=== PATIENT | female | born 1950 | race Caucasian/White ===

== ENCOUNTER 2020-09-30 12:19 | Emergency (ER) | payer MEDICARE, OTHER, SELFPAY ==
[2020-09-30] VITALS (16 sets, daily range): BP systolic 120–167; BP diastolic 60–83; PULSE 72–80; RESP 11–26; TEMP 36.5; O2SAT 93–99; BMI 41.1
--- NOTE | 2020-09-30 12:26 | ED_ITS ---
HPI - Syncope <SONNY Hernandez - Last Filed: 09/30/20 18:31> General Chief Complaint: Syncope Stated Complaint: near syncope Time Seen by Provider: 09/30/20 12:20 Source: EMS Mode of arrival: EMS Limitations: no limitations History of Present Illness HPI narrative: This is a 70-year-old female, nonsmoker, who has significant medical history for cardiac pacer/defib for cardiac failure, kidney disease, TBI, knee surgery, gastric banding, presents to ED with [facility] with chief complain of near syncope when she was at [facility] ordering food. Patient was pale and diaphoretic per witnesses at the restaurant. Patient is a poor historian stating she has dementia. Patient reports she has been feeling lightheaded daily for last 2 years. 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 Patient reports when she feels lightheadedness she just lays on the ground until the dizziness passes. Patient denies cardiac defects/pacemaker recently firing. Patient thinks she is currently on blood thinner but is not able to recall the name. Waiting for family member to arrive with her medication list. She reports abdominal mass when she tightens up abs and can't eat large meals and abdominal bloatedness. Patient reports 1st noticed abdominal messed about 6 years ago. Patient denies chest pain, dyspnea, or any discomfort at this time. Patient has history of urinary leakage but denies dysuria, urinary frequency, or urgency. Patient denies blood in her stools or tarry stools and states she has hard stools rather. Patient denies recent URI symptoms or known exposure to COVID-19. She has chronic cough and was told it is from allergy. Patient returned from a trip to [place] by vehicle. 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 [employer] and had seen lead cook, Dr. Albert(?), at [place] as well. PCP at [facility] but reports had not seen her PCP for frequent near-syncope, abdominal mass. Left a phone message at the clinic for old records and last lab results. Orthostatic positive per EMS with BP lying was 138/89 and sitting up BP was 89/54. Related Data Home Medications Medication Instructions Recorded Confirmed Aspir-81 09/30/20 amlodipine 09/30/20 carvedilol BID 09/30/20 isosorbide mononitrate 30 mg PO DAILY 09/30/20 09/30/20 losartan 09/30/20 nitroglycerin PRN PRN 09/30/20 pantoprazole PO 09/30/20 rosuvastatin mg 09/30/20 Allergies Allergy/AdvReac Type Severity Reaction Status Date / Time niacin Allergy Severe Rash Verified 09/30/20 12:21 Penicillins Allergy Severe Rash Verified 09/30/20 12:21 Review of Systems <SONNY Hernandez - Last Filed: 09/30/20 18:31> Review of Systems Narrative: General: Denies fever, chills, fatigue, malaise, sweats. HEENT: See HPI Respiratory: Denies dyspnea, cough, wheezing, hemoptysis, sputum. Cardiovascular: The HPI Gastrointestinal: Denies nausea, vomiting, abdominal pain, diarrhea, (+) constipation, melena. : Denies dysuria, frequency, (+) incontinence, hematuria, urinary retention. Musculoskeletal: Denies weakness, joint pain or bony pain. Skin: Denies rash, skin lesions, or other. Neurologic: Denies weakness, headache, numbness, change in speech, confusion, seizures, incoordination. Psychiatric: No concerning psychosocial issues. 12-point review of systems is negative except for those stated above. Patient History <SONNY Hernandez - Last Filed: 09/30/20 18:31> Medical History (Updated 09/30/20 @ 16:24 by SONNY Hernandez) Atrophy of right kidney Cardiac failure Chronic kidney disease Dementia GERD (gastroesophageal reflux disease) Hyperlipidemia Hypertension Kidney disease Sleep apnea TBI (traumatic brain injury) Surgical History (Updated 09/30/20 @ 13:53 by SONNY Hernandez) History of implantable cardioverter-defibrillator (ICD) insertion Social History Smoking Status: Never smoker Smoking Status: Never smoker alcohol intake frequency: 0-2 drinks per day Substance Use Type: does not use Exam <SONNY Hernandez - Last Filed: 09/30/20 18:31> Narrative Exam Narrative: GEN: Alert, oriented x 3, well appearing and nourished, and in no acute distress. Head: Normal cephalic, atraumatic. No scalp or temporal tenderness, palpable mass or rash. EYES: Pupils are equal, round, and reactive to light and accommodation. Extraocular muscles are intact bilaterally. There is no subconjunctival hemorrhage, exudate and sclera non-icteric. ENT: Hearing grossly intact. Airway patent. Neck: Trachea in midline. No JVD, non-tender without lymphadenopathy. No masses or thyroid megaly. Supple, non-tender and no meningeal signs. CARDIAC: Normal regular rate and rhythm without murmurs, gallops, or rubs. No chest wall tenderness. No peripheral edema, cyanosis or pallor. Capillary refill is less than 2 seconds. RESPIRATORY: Lungs are clear to auscultate bilaterally. No cough, wheezes, rales, or rhonchi. No stridor, respiratory distress, increase work of breathing, or accessary muscle used. ABD: Abdomen soft, nontender. Slight bulging in mid upper abdomen. No guarding or rebound tenderness to palpate. Bowel sounds are normal in all 4 quadrants. EXT: Full painless ROM of all extremities with no loss of sensation, strength, effusion or edema. SKIN: Slightly pale and diaphoretic. No erythema, lesions or rash over visible areas. BACK: Nontender without deformity or crepitance. No flank tenderness. NEUROLOGICAL: Alert and oriented to place, time and person. Sensation and motor function intact bilaterally. No facial droops, dysphasia. PSYCHIATRIC: Good judgement and reason, without hallucinations, abnormal affect or abnormal behaviors during the examination. Patient is not suicidal. Initial Vital Signs Initial Vital Signs: Vital Signs Temperature 97.7 F 09/30/20 12:18 Pulse Rate 80 09/30/20 12:18 Respiratory Rate 12 09/30/20 12:18 Blood Pressure 123/72 09/30/20 12:18 Pulse Oximetry 98 09/30/20 12:18 <Lacy Amaro DO - Last Filed: 10/03/20 00:13> Initial Vital Signs Initial Vital Signs: Vital Signs Temperature 97.7 F 09/30/20 12:18 Pulse Rate 80 09/30/20 12:18 Respiratory Rate 12 09/30/20 12:18 Blood Pressure 123/72 09/30/20 12:18 Pulse Oximetry 98 09/30/20 12:18 Scores <SONNY Hernandez - Last Filed: 09/30/20 18:31> GCS Dorothy coma scale eye opening: Spontaneous Dorothy coma scale verbal response: Orientated Krystal coma scale motor response: Obey commands Dorothy coma scale total score: 15 Wells' Criteria for PE Clinical signs and symptoms of DVT: No PE is #1 Dx or equally likely: No Heart rate > 100: No Immobilization at least 3 days or surg in previous 4 weeks: No History of PE or DVT: No Hemoptysis: No Malignancy w/Treatment within 6 months or palliative: No Wells' PE Score total: 0 Course <MOE HernandezP - Last Filed: 09/30/20 18:31> Orders Ordered: Discontinued Medications Sodium Chloride (Normal Saline 0.9%) 1,000 mls @ 500 mls/hr IV BOLUS ONE Stop: 09/30/20 14:23 Last Infusion: 09/30/20 17:30 Dose: 0 mls/hr Documented by: Admin: 09/30/20 12:30 Dose: 500 mls/hr Documented by: RUBENS Reevaluation(s) Reevaluation #1: Considered CT-chest, abdomen, pelvis test to rule out AAA but chemistry test result came back with significantly decreased kidney function test with creatinine of 6.19 with estimated GFR of 6.7 and BUN of 61 and ordered US test instead. Contacted the patient's clinic to request old records and recent lab results to compare the today's kidney function test. Patient reports and she is resting in bed, the dizziness is lessen. Time: 13:00 Reevaluation #2: Hemoccult test negative. Rectal exam done with ANTHONY dill. Hard stool palpated in rectal vault. Time: 13:30 Reevaluation #3: Received US abdomen test for aortic aneurysm screen which showed negative for aneurysm but 10 cm cystic mass seen at the supra umbilical region. Received EHR from [facility] and last visit was May 06, 2020. History shows patient has stage IV CKD and followed by Dr. Braxton at [facility] [place]. According to EHR labs in 03/2020, BUN 27, Cr 2.48, K 4.8, Na 142. Patient reports she usually changes adult urinary incontinence pad 2 to 3 times a day but she has not voided today yet. Time: 14:00 Consultations Consultation #1: Contacting [facility] for pending transfer for acute on chronic Kidney disease and frequent near syncope with AICD. Time: 14:40 Consultation #2: Dr. Efra Bartlett at [facility] kindly accepted the patient's care. Time: 15:56 Vital Signs Vital signs: Vital Signs - 8 hr 09/30/20 12:18 09/30/20 12:19 09/30/20 12:21 Temperature 97.7 F Pulse Rate 80 80 78 Respiratory Rate 12 18 20 Blood Pressure 123/72 123/72 Pulse Oximetry 98 96 09/30/20 12:30 09/30/20 13:00 09/30/20 13:30 Temperature Pulse Rate 73 73 72 Respiratory Rate 16 17 14 Blood Pressure 120/64 126/67 149/74 H Pulse Oximetry 93 98 97 09/30/20 13:57 09/30/20 14:00 09/30/20 14:30 Temperature Pulse Rate 74 74 73 Respiratory Rate 15 15 12 Blood Pressure 133/63 134/63 Pulse Oximetry 98 99 98 09/30/20 15:00 09/30/20 15:30 09/30/20 16:00 Temperature Pulse Rate 72 72 78 Respiratory Rate 13 11 L Blood Pressure 125/60 158/83 H 167/79 H Pulse Oximetry 97 98 98 09/30/20 16:30 09/30/20 16:31 09/30/20 17:00 Temperature Pulse Rate 77 76 79 Respiratory Rate 26 H 23 Blood Pressure 164/79 H Pulse Oximetry 98 99 98 09/30/20 17:01 Temperature Pulse Rate 80 Respiratory Rate 25 H Blood Pressure 146/69 H Pulse Oximetry 98 <Lacy Amaro, - Last Filed: 10/03/20 00:13> Orders Ordered: Discontinued Medications Sodium Chloride (Normal Saline 0.9%) 1,000 mls @ 500 mls/hr IV BOLUS ONE Stop: 09/30/20 14:23 Last Infusion: 09/30/20 17:30 Dose: 0 mls/hr Documented by: Admin: 09/30/20 12:30 Dose: 500 mls/hr Documented by: RUBENS Vital Signs Vital signs: Vital Signs - 8 hr 09/30/20 12:18 09/30/20 12:19 09/30/20 12:21 Temperature 97.7 F Pulse Rate 80 80 78 Respiratory Rate 12 18 20 Blood Pressure 123/72 123/72 Pulse Oximetry 98 96 09/30/20 12:30 09/30/20 13:00 09/30/20 13:30 Temperature Pulse Rate 73 73 72 Respiratory Rate 16 17 14 Blood Pressure 120/64 126/67 149/74 H Pulse Oximetry 93 98 97 09/30/20 13:57 09/30/20 14:00 09/30/20 14:30 Temperature Pulse Rate 74 74 73 Respiratory Rate 15 15 12 Blood Pressure 133/63 134/63 Pulse Oximetry 98 99 98 09/30/20 15:00 09/30/20 15:30 09/30/20 16:00 Temperature Pulse Rate 72 72 78 Respiratory Rate 13 11 L Blood Pressure 125/60 158/83 H 167/79 H Pulse Oximetry 97 98 98 09/30/20 16:30 09/30/20 16:31 09/30/20 17:00 Temperature Pulse Rate 77 76 79 Respiratory Rate 26 H 23 Blood Pressure 164/79 H Pulse Oximetry 98 99 98 09/30/20 17:01 Temperature Pulse Rate 80 Respiratory Rate 25 H Blood Pressure 146/69 H Pulse Oximetry 98 MDM - Syncope <SONNY Hernandez - Last Filed: 09/30/20 18:31> Differential Diagnosis Differential diagnosis: Likely syncope due to orthostatic hypotension, complete atrioventricular block, pulmonary embolism, dehydration and other (Arrhythmia, STEMI, NSTEMI, cardiac vavluar disease, kidney mass/obtruction) Medical Records Attestation: I reviewed the patient's medical records. Lab Data Attestation: I reviewed the patient's lab results. Result diagrams: 09/30/20 12:00 09/30/20 12:00 Labs: Lab Results 09/30/20 09/30/20 09/30/20 Range/Units 12:00 12:00 12:00 WBC 7.5 (4.5-11.0) X10^3/uL RBC 3.28 L (4.0-5.2) X10^6/uL Hgb 10.3 L (12.0-16.0) g/dL Hct 30.9 L (36-46) % MCV 94.2 (80-100) fL MCH 31.3 (26-34) PG MCHC 33.2 (30-36) % RDW 13.4 (11.6-14.8) % Plt Count 316 (150-400) X10^3/uL Neut % (Auto) 74.4 (50-75) % Lymph % (Auto) 14.9 L (25-40) % [place] % (Auto) 6.7 (3-14) % Eos % (Auto) 3.2 (2-4) % Baso % (Auto) 0.8 (0-2) % Neut # (Auto) 5600 (3892-5518) /uL Lymph # (Auto) 1100 (1504-7253) /uL [place] # (Auto) 500 (0-900) /uL Eos # (Auto) 200 (0-450) /uL Baso # (Auto) 100 (0-100) /uL PT 11.9 (10.1-12.7) SECONDS INR 1.0 (0.9-1.3) Sodium 140 (137-145) mmol/L Potassium 4.8 (3.4-5.1) mmol/L Chloride 109 H (98-107) mmol/L Carbon Dioxide 22 (22-32) mmol/L BUN 61 H (7-17) mg/dL Creatinine 6.19 H (0.52-1.04) mg/dL Estimated GFR 6.7 L (>60) mL/min BUN/Creatinine Ratio 9.9 (6-22) Glucose 132 H (80-110) mg/dL Calcium 10.7 H (8.4-10.2) mg/dL Total Bilirubin 0.7 (0.2-1.3) mg/dL AST 19 (14-36) IU/L ALT 13 (<35) IU/L Alkaline Phosphatase 51 (38-126) U/L Total Creatine Kinase 25 L (30-135) U/L CK-MB (CK-2) TNP CK-MB (CK-2) Rel Index TNP Troponin I 0.016 (0.01-0.034) ng/mL NT-Pro-B Natriuret Pep 2380 H (<125) pg/mL Total Protein 7.8 (6.3-8.2) g/dL Albumin 4.5 (3.5-5.0) g/dL Globulin 3.3 (1.7-4.1) g/dL Albumin/Globulin Ratio 1.4 (1.0-2.8) Lipase (23-300) U/L Urine Color Urine Appearance Urine pH (4.5-8.0) Ur Specific [place] (1.000-1.035) Urine Protein (Negative) Urine Glucose (UA) (Negative) g/dL Urine Ketones (NEGATIVE) Urine Occult Blood (Negative) Urine Nitrate (Negative) Urine Bilirubin (NEGATIVE) Urine Urobilinogen (0.2) E.U./dL Ur Leukocyte Esterase (NEGATIVE) Urine RBC (0-5/HPF) Urine WBC (0-5/HPF) Amorphous Sediment Urine Bacteria (None) Ur Culture Indicated? COVID-19 PCR (Negative) Blood Type Antibody Screen 09/30/20 09/30/20 09/30/20 Range/Units 12:49 13:11 13:30 WBC (4.5-11.0) X10^3/uL RBC (4.0-5.2) X10^6/uL Hgb (12.0-16.0) g/dL Hct (36-46) % MCV (80-100) fL MCH (26-34) PG MCHC (30-36) % RDW (11.6-14.8) % Plt Count (150-400) X10^3/uL Neut % (Auto) (50-75) % Lymph % (Auto) (25-40) % [place]te % (Auto) (3-14) % Eos % (Auto) (2-4) % Baso % (Auto) (0-2) % Neut # (Auto) (9145-5525) /uL Lymph # (Auto) (7422-6259) /uL [place]te # (Auto) (0-900) /uL Eos # (Auto) (0-450) /uL Baso # (Auto) (0-100) /uL PT (10.1-12.7) SECONDS INR (0.9-1.3) Sodium (137-145) mmol/L Potassium (3.4-5.1) mmol/L Chloride (98-107) mmol/L Carbon Dioxide (22-32) mmol/L BUN (7-17) mg/dL Creatinine (0.52-1.04) mg/dL Estimated GFR (>60) mL/min BUN/Creatinine Ratio (6-22) Glucose (80-110) mg/dL Calcium (8.4-10.2) mg/dL Total Bilirubin (0.2-1.3) mg/dL AST (14-36) IU/L ALT (<35) IU/L Alkaline Phosphatase (38-126) U/L Total Creatine Kinase (30-135) U/L CK-MB (CK-2) CK-MB (CK-2) Rel Index Troponin I (0.01-0.034) ng/mL NT-Pro-B Natriuret Pep (<125) pg/mL Total Protein (6.3-8.2) g/dL Albumin (3.5-5.0) g/dL Globulin (1.7-4.1) g/dL Albumin/Globulin Ratio (1.0-2.8) Lipase 233 (23-300) U/L Urine Color Urine Appearance Urine pH (4.5-8.0) Ur Specific [place] (1.000-1.035) Urine Protein (Negative) Urine Glucose (UA) (Negative) g/dL Urine Ketones (NEGATIVE) Urine Occult Blood (Negative) Urine Nitrate (Negative) Urine Bilirubin (NEGATIVE) Urine Urobilinogen (0.2) E.U./dL Ur Leukocyte Esterase (NEGATIVE) Urine RBC (0-5/HPF) Urine WBC (0-5/HPF) Amorphous Sediment Urine Bacteria (None) Ur Culture Indicated? COVID-19 PCR Negative (Negative) Blood Type O Positive Antibody Screen Negative 09/30/20 Range/Units 17:13 WBC (4.5-11.0) X10^3/uL RBC (4.0-5.2) X10^6/uL Hgb (12.0-16.0) g/dL Hct (36-46) % MCV (80-100) fL MCH (26-34) PG MCHC (30-36) % RDW (11.6-14.8) % Plt Count (150-400) X10^3/uL Neut % (Auto) (50-75) % Lymph % (Auto) (25-40) % [place] % (Auto) (3-14) % Eos % (Auto) (2-4) % Baso % (Auto) (0-2) % Neut # (Auto) (8812-6252) /uL Lymph # (Auto) (5272-3608) /uL Butte # (Auto) (0-900) /uL Eos # (Auto) (0-450) /uL Baso # (Auto) (0-100) /uL PT (10.1-12.7) SECONDS INR (0.9-1.3) Sodium (137-145) mmol/L Potassium (3.4-5.1) mmol/L Chloride (98-107) mmol/L Carbon Dioxide (22-32) mmol/L BUN (7-17) mg/dL Creatinine (0.52-1.04) mg/dL Estimated GFR (>60) mL/min BUN/Creatinine Ratio (6-22) Glucose (80-110) mg/dL Calcium (8.4-10.2) mg/dL Total Bilirubin (0.2-1.3) mg/dL AST (14-36) IU/L ALT (<35) IU/L Alkaline Phosphatase (38-126) U/L Total Creatine Kinase (30-135) U/L CK-MB (CK-2) CK-MB (CK-2) Rel Index Troponin I (0.01-0.034) ng/mL NT-Pro-B Natriuret Pep (<125) pg/mL Total Protein (6.3-8.2) g/dL Albumin (3.5-5.0) g/dL Globulin (1.7-4.1) g/dL Albumin/Globulin Ratio (1.0-2.8) Lipase (23-300) U/L Urine Color Yellow Urine Appearance Clear Urine pH 5.0 (4.5-8.0) Ur Specific [place] 1.020 (1.000-1.035) Urine Protein 1+ H (Negative) Urine Glucose (UA) Negative (Negative) g/dL Urine Ketones Negative (NEGATIVE) Urine Occult Blood Trace-lysed (Negative) Urine Nitrate Negative (Negative) Urine Bilirubin Negative (NEGATIVE) Urine Urobilinogen 0.2 (0.2) E.U./dL Ur Leukocyte Esterase Negative (NEGATIVE) Urine RBC 1-5/hpf (0-5/HPF) Urine WBC None seen (0-5/HPF) Amorphous Sediment 2+ Urine Bacteria None seen (None) Ur Culture Indicated? Cult not indicated COVID-19 PCR (Negative) Blood Type Antibody Screen Point of Care Testing Glucose POC 137 Imaging Data Chest x-ray: Radiologist's Impression: [place] [id number] ReportSigned Patient: Giovani Francis#: [id number]: 9Acct:[id number]/Sex: 70 / FDate of Service: 09/30/20Lo: EDAccession Number: [id number] Procedure: XR chest 1V Ordering Provider: Jermaine Paul PROCEDURE: XR CHEST 1V INDICATIONS: dizziness TECHNIQUE: One view of the chest was acquired. COMPARISON: None. FINDINGS: Surgical changes and devices: Cardiac AICD Scattered subsegmental atelectasis and/or scarring. No focal consolidation. No pleural effusions or pneumothorax. Mediastinum: Mediastinal contours appear normal. Heart size is normal. Bones and chest wall: No suspicious bony lesions. Overlying soft tissues appear unremarkable. IMPRESSION: Scattered subsegmental atelectasis and/or scarring. No focal consolidation. Dictated by: Sarath Albert M.D. on 09/30/2020 at 12:48 Approved by: Sarath Albetr M.D. on 09/30/2020 at 12:49 CT scan - head: Radiologist's Impression: [address] [id number] Scan ReportSigned Patient: Giovani Francis#: [id number]: 9At:[id number]/Sex: 70 / FDate of Service: 09/30/20Loc: EDAccession Number: [id number] Procedure: CT head/brain wo con Ordering Provider: Jermaine Paul PROCEDURE: CT HEAD/BRAIN WO CON INDICATIONS: frequent near syncope TECHNIQUE: Noncontrast 4.5 mm thick angled axial sections acquired from the foramen magnum to the vertex, with coronal and sagittal reformats. For radiation dose reduction, the following was used: automated exposure control, adjustment of mA and/or kV according to patient size. COMPARISON: None. FINDINGS: Image quality: Excellent. CSF spaces: Basal cisterns are patent. No extra-axial fluid collections. The ventricles are symmetric in size and shape. Brain: No intracranial bleeds or masses. There is mild cerebral volume loss for age, with resultant ventricular and sulcal prominence. There are moderate to severe periventricular and deep white matter chronic small vessel ischemic changes. There is intracranial internal carotid artery and vertebral artery atherosclerosis. Skull and face: Calvarium and visualized facial bones appear intact, without suspicious lesions. Sinuses: Visualized sinuses and mastoids are clear. IMPRESSION: No acute intracranial disease process. Dictated by: Arabella Dias MD, PhD on 09/30/2020 at 14:17 Approved by: Arabella Dias MD, PhD on 09/30/2020 at 14:19 US-Abdominal arterial study: Radiologist's Impression: [address] [id number] ReportSigned Patient: Giovani Francis#: [id number]: 9Acct:[id number]/Sex: 70 / FDate of Service: 09/30/20Loc: EDAccession Number: [id number] Procedure: US abd aorta aneurysm screen Ordering Provider: Jermaine Paul PROCEDURE: US ABD AORTA ANEURYSM SCREEN INDICATIONS: ABDOMINAL MASS. NEAR SYNCOPE TECHNIQUE: Real time scanning was performed of the aorta and iliac arteries, with image documentation. COMPARISON: [facility], CT, CT ABDOMEN PELVIS WITHOUT CONTRAST, 03/10/2018, 11:37. FINDINGS: Aorta: Proximal aortic diameter measures 2.4 x 2.6 cm. Mid-aorta measures 2.6 x 2.1 cm. Distal aortic diameter is 1.8 x 1.8 cm. Iliac arteries: Right common iliac artery measures 1.1 x 1 cm. Left common iliac artery measures 1.1 x 0.8 cm. Within the supraumbilical region, there is a large cystic mass seen, which corresponds to the palpable area measuring 8.4 x 8.5 x 10 cm. This study is overall limited by patient body habitus and bowel gas. IMPRESSION: Negative for aneurysm. 10 cm cystic mass seen at the area clinical concern. A 9.3 cm left pelvis mass was seen on the 2018 CT examination and this may represent the same mass. If clinically appropriate, a follow-up CT with at least IV contrast would be recommended for further evaluation. Dictated by: Jalen Harris M.D. on 09/30/2020 at 12:41 Approved by: Jalen Harris M.D. on 09/30/2020 at 12:44 US-Renal: Radiologist's Impression: [facility] [place] [id number] ReportSigned Patient: Gioavni Francis#: [id number]: 9Acct:[id number]/Sex: 70 / FDate of Service: 09/30/20Loc: EDAccession Number: [id number] Procedure: US renal complete Ordering Provider: Jermaine Paul PROCEDURE: US RENAL COMPLETE INDICATIONS: kidney diease, acutely worse and known R renal cysts TECHNIQUE: Real-time scanning was performed of the kidneys and bladder, with image documentation. COMPARISON: [facility], , US ABD AORTA ANEURYSM SCREEN, 09/30/2020, 13:03. FINDINGS: Kidneys: Kidneys are normal in size. Right kidney measures 9.2 cm long; left kidney measures 9.6 cm long. Right renal cortical thickness is 0.7 cm; left renal cortical thickness is 0.9 cm. There is generalized increased echogenicity of the kidneys. No hydronephrosis or nephrolithiasis. No suspicious solid mass lesions. On the right, simple cysts are seen, which measure up to 1.7 cm superiorly and 1.6 cm inferiorly Bladder: Pre-void bladder volume is 115 mL. Despite this bladder volume, the patient was unable to void.. Pre-void images demonstrate no intraluminal masses or stones. On pre-void images, neither of the ureteral jets are noted with color Doppler interrogation. (Of note, ureteral jets may not be detectable in up to 25% of cases due to insufficient differences in specific gravity between ureteral and bladder urine). Miscellaneous: No free pelvic fluid. Multiple mobile gallstones are seen w ithin the gallbladder, with the largest measuring up to 17 mm. The previously seen cystic lesion is not depicted on these images. IMPRESSION: Cortical thinning and echogenic kidneys can be seen, which is consistent with chronic renal disease. Simple appearing right renal cysts are seen. Likely urinary retention, with the patient unable to void, despite a measured bladder volume of 115 cc. Gallstones incidentally noted. Dictated by: Jalen Harris M.D. on 09/30/2020 at 15:43 Approved by: Jalen Harris M.D. on 09/30/2020 at 15:46 ECG Data Attestation: I personally reviewed and interpreted this ECG as follows: Prior ECG tracings: not available for review Interpretation: Normal sinus rhythm rate at 81 with left anterior fascicular block. Left dominant axis. RI interval 206, QRS duration 108, QT/QTC 406/[address] changes. MDM Narrative Medical decision making narrative: This is a 70-year-old female who has past medical history significant for AICD for heart failure, stage IV kidney failure, hypertension, dementia presents to ED with EMS after she had near syncope at local restaurant. At the scene the patient was diaphoretic and was positive for orthostatic hypotension. Patient has difficulty remembering medical history well and states has dementia. Patient reports has an appointment coming up soon with primary care physician to follow up on general things. We do not have much record patient in EHR. Patient reports has frequent presyncopal symptoms and dizziness for last 2 years. Also states had abdominal mass for last 6 years. Patient states she sees pilot instructor and lead cook at [facility]. EKG shows sinus rhythm rate at 81 with left anterior fascicular block. Patient denies feeling AICD firing recently. Patient has no neurological deficit according to exam. Patient is not have tachycardia and denies chest pain or dyspnea. Wells score for PE is 0. Head CT was negative for acute finding. Concerned for abdominal aortic aneurysm, initially consider CT test but the patient's kidney function results with significantly decreased with Cr of 6.19 and BUN of 61. Last lab in March (old record from PCP's office) shows Cr of 2.48 and BUN of 27 with significant changes. Ultrasound of abdomen for aortic artery study which shows negative for aneurysm but supraumbilical region there is a large cystic mass measuring at 10 cm. According to radiologist reports there was a 9.3 cm left pelvis mass that was seen in 2018 CT examination and may presents the same mass. Recommending IV contrast CT for further evaluation if clinically appropriate. Patient reports she usually changes Maria Antonia pad 2-3 times a day but had not voided today. Today's troponin is 0.016 (0.01-0.034). ProBNP is elevated to 2380 but does not reports dyspnea, orthopnea, lower extremity edema. Chest x-ray was negative for acute findings but indicates scattered subsegmental atelectasis and or scarring without focal consolidations. Heart s ize is normal. Renal US ordered and pending to study structural etiology for acutely decrease kidney function. According to old record, patient has known small renal cysts and atrophic right-sided kidney. Slightly decreased H&H of 10.3/30.9 and this may be patient's baseline given chronic renal failure. No previous record to compare this. US renal test indicates kidneys are in normal size but cortical thinning and echogenic kidneys which is consistent with chronic renal disease. There is no hydronephrosis or nephrolithiasis. No suspicion solid mass lesions appreciated. On the right kidney there are simple cysts seen measure up to 1.7 cm superiorly and 1.6 cm inferiorly. There is abo ut 115 mL of pre void bladder and patient is not able to void/has urinary urgency at this time. Incidental findings of gallstone which is mobile within the gallbladder the largest measuring up to 17 mm. Patient does not endorses any abdominal pain, nausea or vomiting. Patient received normal saline 500 mL bolus for orthostatic hypotension and near-syncope with gentle IV hydration there after. Patient reports symptoms no symptoms while at rest in bed. Considered Lasix but without symptoms of short of breath, chest pain, normal heart size in x-ray test, near syncope with orthostatic blood pressure, patient was not medicated with Lasix at this time. Waiting for [place] phone call for transfer given acutely decreased kidney function on chronic kidney failure requiring lead cook evaluation and possible hemodialysis. Old records shows cardiac echo in 11/2018-severely dilated LV, EF 35%, moderately global hypokinesis, mild LVH and severe diastolic dysfunction, mild/moderate aortic valve insufficiency. MR on 11/2018 NM ETT negative for ishchemia. Patient probably needs follow-up on cardiac workup for frequent syncope for the frequent near syncope for cardiac etiology. Urinary helen done and obtained about 200ml of urine and sample sent out to lab. UA negative for infection but shows 1+ protein. We discussed pending transfer to acute facility for acutely decreased kidney function and frequent syncope with patient and she verbalized understanding in agreement with the treatment. All require documents are completed. <Lacy Amaro, - Last Filed: 10/03/20 00:13> Lab Data Labs: Lab Results 09/30/20 09/30/20 09/30/20 Range/Units 12:00 12:00 12:00 WBC 7.5 (4.5-11.0) X10^3/uL RBC 3.28 L (4.0-5.2) X10^6/uL Hgb 10.3 L (12.0-16.0) g/dL Hct 30.9 L (36-46) % MCV 94.2 (80-100) fL MCH 31.3 (26-34) PG MCHC 33.2 (30-36) % RDW 13.4 (11.6-14.8) % Plt Count 316 (150-400) X10^3/uL Neut % (Auto) 74.4 (50-75) % Lymph % (Auto) 14.9 L (25-40) % [place] % (Auto) 6.7 (3-14) % Eos % (Auto) 3.2 (2-4) % Baso % (Auto) 0.8 (0-2) % Neut # (Auto) 5600 (0191-0441) /uL Lymph # (Auto) 1100 (0592-8656) /uL [place] # (Auto) 500 (0-900) /uL Eos # (Auto) 200 (0-450) /uL Baso # (Auto) 100 (0-100) /uL PT 11.9 (10.1-12.7) SECONDS INR 1.0 (0.9-1.3) Sodium 140 (137-145) mmol/L Potassium 4.8 (3.4-5.1) mmol/L Chloride 109 H (98-107) mmol/L Carbon Dioxide 22 (22-32) mmol/L BUN 61 H (7-17) mg/dL Creatinine 6.19 H (0.52-1.04) mg/dL Estimated GFR 6.7 L (>60) mL/min BUN/Creatinine Ratio 9.9 (6-22) Glucose 132 H (80-110) mg/dL Calcium 10.7 H (8.4-10.2) mg/dL Total Bilirubin 0.7 (0.2-1.3) mg/dL AST 19 (14-36) IU/L ALT 13 (<35) IU/L Alkaline Phosphatase 51 (38-126) U/L Total Creatine Kinase 25 L (30-135) U/L CK-MB (CK-2) TNP CK-MB (CK-2) Rel Index TNP Troponin I 0.016 (0.01-0.034) ng/mL NT-Pro-B Natriuret Pep 2380 H (<125) pg/mL Total Protein 7.8 (6.3-8.2) g/dL Albumin 4.5 (3.5-5.0) g/dL Globulin 3.3 (1.7-4.1) g/dL Albumin/Globulin Ratio 1.4 (1.0-2.8) Lipase (23-300) U/L Urine Color Urine Appearance Urine pH (4.5-8.0) Ur Specific [place] (1.000-1.035) Urine Protein (Negative) Urine Glucose (UA) (Negative) g/dL Urine Ketones (NEGATIVE) Urine Occult Blood (Negative) Urine Nitrate (Negative) Urine Bilirubin (NEGATIVE) Urine Urobilinogen (0.2) E.U./dL Ur Leukocyte Esterase (NEGATIVE) Urine RBC (0-5/HPF) Urine WBC (0-5/HPF) Amorphous Sediment Urine Bacteria (None) Ur Culture Indicated? COVID-19 PCR (Negative) Blood Type Antibody Screen 09/30/20 09/30/20 09/30/20 Range/Units 12:49 13:11 13:30 WBC (4.5-11.0) X10^3/uL RBC (4.0-5.2) X10^6/uL Hgb (12.0-16.0) g/dL Hct (36-46) % MCV (80-100) fL MCH (26-34) PG MCHC (30-36) % RDW (11.6-14.8) % Plt Count (150-400) X10^3/uL Neut % (Auto) (50-75) % Lymph % (Auto) (25-40) % [place] % (Auto) (3-14) % Eos % (Auto) (2-4) % Baso % (Auto) (0-2) % Neut # (Auto) (6728-2792) /uL Lymph # (Auto) (4473-1982) /uL [place] # (Auto) (0-900) /uL Eos # (Auto) (0-450) /uL Baso # (Auto) (0-100) /uL PT (10.1-12.7) SECONDS INR (0.9-1.3) Sodium (137-145) mmol/L Potassium (3.4-5.1) mmol/L Chloride (98-107) mmol/L Carbon Dioxide (22-32) mmol/L BUN (7-17) mg/dL Creatinine (0.52-1.04) mg/dL Estimated GFR (>60) mL/min BUN/Creatinine Ratio (6-22) Glucose (80-110) mg/dL Calcium (8.4-10.2) mg/dL Total Bilirubin (0.2-1.3) mg/dL AST (14-36) IU/L ALT (<35) IU/L Alkaline Phosphatase (38-126) U/L Total Creatine Kinase (30-135) U/L CK-MB (CK-2) CK-MB (CK-2) Rel Index Troponin I (0.01-0.034) ng/mL NT-Pro-B Natriuret Pep (<125) pg/mL Total Protein (6.3-8.2) g/dL Albumin (3.5-5.0) g/dL Globulin (1.7-4.1) g/dL Albumin/Globulin Ratio (1.0-2.8) Lipase 233 (23-300) U/L Urine Color Urine Appearance Urine pH (4.5-8.0) Ur Specific [place] (1.000-1.035) Urine Protein (Negative) Urine Glucose (UA) (Negative) g/dL Urine Ketones (NEGATIVE) Urine Occult Blood (Negative) Urine Nitrate (Negative) Urine Bilirubin (NEGATIVE) Urine Urobilinogen (0.2) E.U./dL Ur Leukocyte Esterase (NEGATIVE) Urine RBC (0-5/HPF) Urine WBC (0-5/HPF) Amorphous Sediment Urine Bacteria (None) Ur Culture Indicated? COVID-19 PCR Negative (Negative) Blood Type O Positive Antibody Screen Negative 09/30/20 Range/Units 17:13 WBC (4.5-11.0) X10^3/uL RBC (4.0-5.2) X10^6/uL Hgb (12.0-16.0) g/dL Hct (36-46) % MCV (80-100) fL MCH (26-34) PG MCHC (30-36) % RDW (11.6-14.8) % Plt Count (150-400) X10^3/uL Neut % (Auto) (50-75) % Lymph % (Auto) (25-40) % [place] % (Auto) (3-14) % Eos % (Auto) (2-4) % Baso % (Auto) (0-2) % Neut # (Auto) (8067-1682) /uL Lymph # (Auto) (1937-2993) /uL [place] # (Auto) (0-900) /uL Eos # (Auto) (0-450) /uL Baso # (Auto) (0-100) /uL PT (10.1-12.7) SECONDS INR (0.9-1.3) Sodium (137-145) mmol/L Potassium (3.4-5.1) mmol/L Chloride (98-107) mmol/L Carbon Dioxide (22-32) mmol/L BUN (7-17) mg/dL Creatinine (0.52-1.04) mg/dL Estimated GFR (>60) mL/min BUN/Creatinine Ratio (6-22) Glucose (80-110) mg/dL Calcium (8.4-10.2) mg/dL Total Bilirubin (0.2-1.3) mg/dL AST (14-36) IU/L ALT (<35) IU/L Alkaline Phosphatase (38-126) U/L Total Creatine Kinase (30-135) U/L CK-MB (CK-2) CK-MB (CK-2) Rel Index Troponin I (0.01-0.034) ng/mL NT-Pro-B Natriuret Pep (<125) pg/mL Total Protein (6.3-8.2) g/dL Albumin (3.5-5.0) g/dL Globulin (1.7-4.1) g/dL Albumin/Globulin Ratio (1.0-2.8) Lipase (23-300) U/L Urine Color Yellow Urine Appearance Clear Urine pH 5.0 (4.5-8.0) Ur Specific [place] 1.020 (1.000-1.035) Urine Protein 1+ H (Negative) Urine Glucose (UA) Negative (Negative) g/dL Urine Ketones Negative (NEGATIVE) Urine Occult Blood Trace-lysed (Negative) Urine Nitrate Negative (Negative) Urine Bilirubin Negative (NEGATIVE) Urine Urobilinogen 0.2 (0.2) E.U./dL Ur Leukocyte Esterase Negative (NEGATIVE) Urine RBC 1-5/hpf (0-5/HPF) Urine WBC None seen (0-5/HPF) Amorphous Sediment 2+ Urine Bacteria None seen (None) Ur Culture Indicated? Cult not indicated COVID-19 PCR (Negative) Blood Type Antibody Screen Point of Care Testing Glucose POC 137 Discharge Plan Departure Patient Disposition: [facility] Clinical Impression: Acute nontraumatic kidney injury, Near syncope Prescriptions: No Action Aspir-81 RF: 0 carvedilol 25 mg tablet BID RF: 0 amlodipine 5 mg tablet RF: 0 pantoprazole 40 mg tablet,delayed release (DR/EC) PO RF: 0 losartan 100 mg tablet RF: 0 rosuvastatin 40 mg tablet RF: 0 nitroglycerin PRN PRN (Reason: Chest Pain) RF: 0 isosorbide mononitrate 30 mg PO DAILY RF: 0 <Lacy Amaro DO - Last Filed: 10/03/20 00:13> Cosign ED Attending Cosignature Attestation: I was immediately available in the department for consultation. Documentation has been reviewed. I agree with assessment and plan.
[2020-09-30] MEDS: SODIUM CHLORIDE 0.9% 1,000 ML 500 ML IV (12:30)
[2020-09-30 12:34] LABS: Add Manual Diff / Slide Review NO; Basophils Absolute Auto 100 /uL (0-100); Basophils Percent Auto 0.8 % (0-2); Eosinophils Absolute Auto 200 /uL (0-450); Eosinophils Percent Auto 3.2 % (2-4); Hematocrit 30.9 % (36-46); Hemoglobin 10.3 g/dL (12.0-16.0); Lymphocytes Absolute Auto 1100 /uL (1100-4500); Lymphocytes Percent Auto 14.9 % (25-40); Mean Corpuscular HGB Conc 33.2 % (30-36); Mean Corpuscular Hemoglobin 31.3 PG (26-34); Mean Corpuscular Volume 94.2 fL (80-100); Monocytes Absolute Auto 500 /uL (0-900); Monocytes Percent Auto 6.7 % (3-14); Neutrophils Absolute Auto 5600 /uL (1500-7000); Neutrophils Percent Auto 74.4 % (50-75); Platelet Count 316 X10^3/uL (150-400); Red Blood Cell Count 3.28 X10^6/uL (4.0-5.2); Red Cell Distribution Width 13.4 % (11.6-14.8); White Blood Cell Count 7.5 X10^3/uL (4.5-11.0)
--- NOTE | 2020-09-30 12:34 | PC.NURSE ---
patient near syncope, diaphoresis while at restaurant, assisted to floor legs elevated. Did not hit head or have LOC. Orthostatic by EMS. Arrives to ER feeling much better. I have had this happen before, usually I just lay there in the street or where ever it happens until I don't feel dizzy then walk home Denies chest pain, SOB or nausea.
[2020-09-30 12:37] LABS: Prothrombin Time 11.9 SECONDS (10.1-12.7)
[2020-09-30 12:42] LABS: Alanine Aminotransferase 13 IU/L (<35); Albumin 4.5 g/dL (3.5-5.0); Albumin Globulin Ratio 1.4 (1.0-2.8); Alkaline Phosphatase 51 U/L (38-126); Aspartate Aminotransferase 19 IU/L (14-36); BUN Creatinine Ratio 9.9 (6-22); Bilirubin Total 0.7 mg/dL (0.2-1.3); Blood Urea Nitrogen 61 mg/dL (7-17); Calcium 10.7 mg/dL (8.4-10.2); Carbon Dioxide 22 mmol/L (22-32); Chloride 109 mmol/L (98-107); Creatine Kinase 25 U/L (30-135); Estimated Glomerular Filt Rate 6.7 mL/min (>60); Globulin 3.3 g/dL (1.7-4.1); Glucose 132 mg/dL (80-110); HEMOLYSIS 25 (0-50); Potassium 4.8 mmol/L (3.4-5.1); Sodium 140 mmol/L (137-145); Total Protein 7.8 g/dL (6.3-8.2)
--- NOTE | 2020-09-30 12:45 | DI.US.S_ITS ---
PROCEDURE: US ABD AORTA ANEURYSM SCREEN INDICATIONS: ABDOMINAL MASS. NEAR SYNCOPE TECHNIQUE: Real time scanning was performed of the aorta and iliac arteries, with image documentation. COMPARISON: [facility], CT, CT ABDOMEN PELVIS WITHOUT CONTRAST, 03/10/2018, 11:37. FINDINGS: Aorta: Proximal aortic diameter measures 2.4 x 2.6 cm. Mid-aorta measures 2.6 x 2.1 cm. Distal aortic diameter is 1.8 x 1.8 cm. Iliac arteries: Right common iliac artery measures 1.1 x 1 cm. Left common iliac artery measures 1.1 x 0.8 cm. Within the supraumbilical region, there is a large cystic mass seen, which corresponds to the palpable area measuring 8.4 x 8.5 x 10 cm. This study is overall limited by patient body habitus and bowel gas. IMPRESSION: Negative for aneurysm. 10 cm cystic mass seen at the area clinical concern. A 9.3 cm left pelvis mass was seen on the 2018 CT examination and this may represent the same mass. If clinically appropriate, a follow-up CT with at least IV contrast would be recommended for further evaluation. Dictated by: Jalen Harris M.D. on 09/30/2020 at 12:41 Approved by: Jalen Harris M.D. on 09/30/2020 at 12:44
[2020-09-30 12:54] LABS: NT-proBNP (BNP-Adult 18+) 2380 pg/mL (<125); Troponin I 0.016 ng/mL (0.01-0.034)
[2020-09-30 13:09] LABS: Lipase 233 U/L (23-300)
--- NOTE | 2020-09-30 13:31 | DI.CT.S_ITS ---
PROCEDURE: CT HEAD/BRAIN WO CON INDICATIONS: frequent near syncope TECHNIQUE: Noncontrast 4.5 mm thick angled axial sections acquired from the foramen magnum to the vertex, with coronal and sagittal reformats. For radiation dose reduction, the following was used: automated exposure control, adjustment of mA and/or kV according to patient size. COMPARISON: None. FINDINGS: Image quality: Excellent. CSF spaces: Basal cisterns are patent. No extra-axial fluid collections. The ventricles are symmetric in size and shape. Brain: No intracranial bleeds or masses. There is mild cerebral volume loss for age, with resultant ventricular and sulcal prominence. There are moderate to severe periventricular and deep white matter chronic small vessel ischemic changes. There is intracranial internal carotid artery and vertebral artery atherosclerosis. Skull and face: Calvarium and visualized facial bones appear intact, without suspicious lesions. Sinuses: Visualized sinuses and mastoids are clear. IMPRESSION: No acute intracranial disease process. Dictated by: Arabella Dias MD, PhD on 09/30/2020 at 14:17 Approved by: Arabella Dias MD, PhD on 09/30/2020 at 14:19
[2020-09-30 13:49] LABS: COVID19 -Nasal RAPID Negative (Negative)
--- NOTE | 2020-09-30 15:12 | DI.US.S_ITS ---
PROCEDURE: US RENAL COMPLETE INDICATIONS: kidney diease, acutely worse and known R renal cysts TECHNIQUE: Real-time scanning was performed of the kidneys and bladder, with image documentation. COMPARISON: [facility], US, US ABD AORTA ANEURYSM SCREEN, 09/30/2020, 13:03. FINDINGS: Kidneys: Kidneys are normal in size. Right kidney measures 9.2 cm long; left kidney measures 9.6 cm long. Right renal cortical thickness is 0.7 cm; left renal cortical thickness is 0.9 cm. There is generalized increased echogenicity of the kidneys. No hydronephrosis or nephrolithiasis. No suspicious solid mass lesions. On the right, simple cysts are seen, which measure up to 1.7 cm superiorly and 1.6 cm inferiorly Bladder: Pre-void bladder volume is 115 mL. Despite this bladder volume, the patient was unable to void.. Pre-void images demonstrate no intraluminal masses or stones. On pre-void images, neither of the ureteral jets are noted with color Doppler interrogation. (Of note, ureteral jets may not be detectable in up to 25% of cases due to insufficient differences in specific gravity between ureteral and bladder urine). Miscellaneous: No free pelvic fluid. Multiple mobile gallstones are seen within the gallbladder, with the largest measuring up to 17 mm. The previously seen cystic lesion is not depicted on these images. IMPRESSION: Cortical thinning and echogenic kidneys can be seen, which is consistent with chronic renal disease. Simple appearing right renal cysts are seen. Likely urinary retention, with the patient unable to void, despite a measured bladder volume of 115 cc. Gallstones incidentally noted. Dictated by: Jalen Harris M.D. on 09/30/2020 at 15:43 Approved by: Jalen Harris M.D. on 09/30/2020 at 15:46
[2020-09-30 17:22] LABS: Bacteria Urine None Seen; WBC Urine None Seen (0-5/HPF)
[2020-09-30 17:23] LABS: Appearance Urine UA CLEAR; Bilirubin Urine UA NEGATIVE (NEGATIVE); Color Urine UA YELLOW; Glucose Urine UA NEGATIVE (Negative); Ketones Urine UA NEGATIVE (NEGATIVE); Leukocyte Esterase Urine UA NEGATIVE (NEGATIVE); Nitrite Urine UA NEGATIVE (Negative); Occult Blood Urine UA TRACE-LYSED (Negative); Protein Urine UA 1+ (Negative); Urobilinogen Urine UA 0.2 E.U./dL (0.2)
[2020-09-30 17:55] LABS: Amorphous Sediment Urine 2+; Culture Indicated Urine Cult Not Indicated; RBC Urine 1-5/HPF (0-5/HPF)
== END 2020-09-30 17:30 | disposition short-term general hospital (02) ==
PROVIDERS: Emergency Provider Nurse Practitioner Family
DX: N17.9 Acute kidney failure, unspecified (principal); I95.1 Orthostatic hypotension; I50.9 Heart failure, unspecified; Z95.0 Presence of cardiac pacemaker; K59.00 Constipation, unspecified; R42 Dizziness and giddiness; N18.5 Chronic kidney disease, stage 5; R19.00 Intra-abdominal and pelvic swelling, mass and lump, unspecified site; F03.90 Unspecified dementia, unspecified severity, without behavioral disturbance, psychotic disturbance, mood disturbance, and anxiety
CPT/HCPCS: 36415; 70450; 71045; 76706; 76770; 80053; 81001; 82550; 83690; 83880; 84484; 85025; 85610; 86850; 86900; 86901; 87635; 93005; 96360; 96361; 99284

== ENCOUNTER → 2020-10-10 19:22 | Outpatient (ROUT) | payer MEDICARE, SELFPAY ==
[2020-10-10 19:54] LABS: BUN Creatinine Ratio 7.8 (6-22); Blood Urea Nitrogen 49 mg/dL (7-17); Calcium 10.9 mg/dL (8.4-10.2); Carbon Dioxide 22 mmol/L (22-32); Chloride 106 mmol/L (98-107); Estimated Glomerular Filt Rate 6.6 mL/min (>60); Glucose 100 mg/dL (80-110); HEMOLYSIS < 15 (0-50); Potassium 5.1 mmol/L (3.4-5.1); Sodium 137 mmol/L (137-145)
== END ==
PROVIDERS: Visit Provider Student in an Organized Health Care Education/Training Program
DX: N17.9 Acute kidney failure, unspecified (principal); N18.4 Chronic kidney disease, stage 4 (severe); I50.40 Unspecified combined systolic (congestive) and diastolic (congestive) heart failure; I10 Essential (primary) hypertension
CPT/HCPCS: 80048

== ENCOUNTER → 2020-10-18 09:16 | Outpatient (CLI) | payer MEDICARE, OTHER, SELFPAY ==
--- NOTE | 2020-10-18 | DI.CT.S_ITS ---
PROCEDURE: CT ABDOMEN WO CON INDICATIONS: ABDOMINAL MASS, UNSPECIFIED ABDOMINAL LOCATION. TECHNIQUE: After the administration of oral contrast, 5 mm thick sections acquired from the diaphragms to the iliac crests. 5 mm coronal and sagittal reformats were then performed. For radiation dose reduction, the following was used: automated exposure control, adjustment of mA and/or kV according to patient size. COMPARISON: [facility], CT, CT ABDOMEN PELVIS WITHOUT CONTRAST, 03/10/2018, 11:37. [facility], CR, XR CHEST 1V, 09/30/2020, 12:36. FINDINGS: Image quality: Excellent. Lung bases: Lung bases are clear. Heart size is normal. A cardiac pacemaker is present. Solid organs: Liver is normal in size. Gallbladder contains gallstones. Pancreas is normal in contours. Spleen is normal in size. No adrenal nodules. Both kidneys are normal in size, without hydronephrosis or nephrolithiasis. Mild right renal cortical thinning and multiple small renal cortical cysts. Peritoneum and bowel: There is gastric banding. Bowel loops demonstrate normal wall thickness and caliber. No free fluid or air. There are colonic diverticula. Nodes and vessels: No retroperitoneal or mesenteric adenopathy by size criteria. Aorta and inferior vena cava are normal in size. Bones: No suspicious bony lesions. No vertebral body compression fractures. Mild degenerative disc disease and moderate facet arthropathy in lumbar spine. Miscellaneous: A skin marker is seen in the area of interest. No mass is identified. No hernia over the area. A small fat containing umbilical hernia is present. IMPRESSION: 1. No mass is identified in the area of interest. 2. Cholelithiasis. 3. Gastric banding. 4. Diverticulosis without diverticulitis. 5. Small fat containing umbilical hernia. 6. Mild right renal cortical thinning and multiple renal cortical cysts. Dictated by: Abbey Toscano M.D. on 10/18/2020 at 10:07 Approved by: Abbey Toscano M.D. on 10/18/2020 at 10:47
--- NOTE | 2020-12-01 15:48 | ONC.MSW ---
Description: Initial Referral Navigation Reason for Referral: FHx Hemachromatosis, with single gene mutation [id number], elevated ferritin Activity: Reviewed new referral for acuity, medical status, and immediate needs. Pt has a family hx of hemachromatosis, is not in any acute distress. Forwarded to scheduling for next available f/u end of December.
== END ==
PROVIDERS: PCP Student in an Organized Health Care Education/Training Program; Referring Provider Student in an Organized Health Care Education/Training Program; Visit Provider Student in an Organized Health Care Education/Training Program
DX: R19.00 Intra-abdominal and pelvic swelling, mass and lump, unspecified site (principal); K80.20 Calculus of gallbladder without cholecystitis without obstruction; K57.90 Diverticulosis of intestine, part unspecified, without perforation or abscess without bleeding; N28.1 Cyst of kidney, acquired; K42.9 Umbilical hernia without obstruction or gangrene; Z95.0 Presence of cardiac pacemaker; Z98.84 Bariatric surgery status
CPT/HCPCS: 74150